=== PATIENT | male | born 1930 | race African-American/Black ===

== ENCOUNTER 2017-03-08 08:07 | Inpatient (IN) | payer OTHER ==
[~2017-03-08] VITALS: Ht 175.3 cm; Wt 95.3 kg
[2017-03-08] MEDS ORDERED: TRAM50TA2 PO (08:30)
[2017-03-08] MEDS ORDERED: GLIM2TAB2 PO (08:30)
[2017-03-08] MEDS ORDERED: METF500T4 PO (08:30)
[2017-03-08] MEDS ORDERED: ATOR40TA78 PO (08:30)
[2017-03-08] MEDS ORDERED: LEVE500T8 PO (08:30)
[2017-03-08] MEDS ORDERED: OMEP-110 PO (08:30)
[2017-03-08] MEDS ORDERED: LOSA25TA5 PO (08:30)
[2017-03-08] MEDS ORDERED: ONDANSETRON 2MG/ML, 2ML IVPush ONE (09:30)
[2017-03-08 09:49] LABS: HEMATOCRIT 29.1 % (39.2-51.8); HEMOGLOBIN 9.5 g/dL (13.7-18.0); WHITE BLOOD COUNT 8.3 x10^3/uL (3.4-10)
[2017-03-08 09:59] LABS: ASPARTATE AMINO TRANSFERASE 20 U/L (15-37); BLOOD UREA NITROGEN 13 mg/dL (7-18)
[2017-03-08] MEDS ORDERED: SODIUM CHLORIDE 0.9% 1,000ML IVBOLUS ONE (10:00)
[2017-03-08 10:05] LABS: IS PT STATUS REG ER OR PRE ER? YES
[2017-03-08] MEDS ORDERED: SODIUM CHLORIDE FLUSH 10ML SYR IVF ONE (10:30)
[2017-03-08] MEDS ORDERED: OMNIPAQUE 350 MG/ML, 100ML BOTTLE ONE (11:15)
[2017-03-08 13:50] VITALS: BP 135/75
[2017-03-08 14:40] VITALS: BP 135/75
[2017-03-08] MEDS ORDERED: ACETAMINOPHEN 325 MG TABLET ONE (16:28)
[2017-03-08] MEDS ORDERED: ACETAMINOPHEN 325 MG TABLET PO PRN ×2 (16:30→17:00)
[2017-03-08] MEDS: SODIUM CHLORIDE 0.9% 1,000 ML IV SCH (16:39)
[2017-03-08] MEDS ORDERED: hydrALAzine 20 MG/ML, 1ML IVPush PRN (17:00)
[2017-03-08] MEDS ORDERED: ENALAPRILAT 1.25 MG/ML, 2ML IVPush PRN (17:00)
[2017-03-08] MEDS ORDERED: ONDANSETRON 2MG/ML, 2ML IVPush PRN (17:00)
[2017-03-08] MEDS ORDERED: BISACODYL 10 MG SUPP PR PRN (17:00)
[2017-03-08] MEDS ORDERED: POLYETHYLENE GLYCOL 17 GM PACKET PO PRN (17:00)
[2017-03-08] MEDS: HEPARIN 5,000 UNITS/ML, 1ML SQ SCH (19:19)
[2017-03-08 20:00] VITALS: BP 127/69
[2017-03-08] MEDS: metFORMIN 500 MG TABLET PO SCH (20:48)
[2017-03-08] MEDS: ATORVASTATIN 40 MG TABLET PO SCH (22:27)
[2017-03-09] VITALS (11 sets, daily range): BP systolic 148–188; BP diastolic 53–92
[2017-03-09] MEDS: HEPARIN 5,000 UNITS/ML, 1ML SQ SCH ×3 (02:18→17:51)
[2017-03-09] MEDS: SODIUM CHLORIDE 0.9% 1,000 ML IV SCH (04:55)
[2017-03-09 06:05] LABS: HEMATOCRIT 29.4 % (39.2-51.8); HEMOGLOBIN 9.5 g/dL (13.7-18.0)
[2017-03-09 06:21] LABS: ASPARTATE AMINO TRANSFERASE 19 U/L (15-37); BLOOD UREA NITROGEN 10 mg/dL (7-18)
[2017-03-09] MEDS: SENNA/DOCUSATE TABLET PO SCH (09:00)
[2017-03-09] MEDS: metFORMIN 500 MG TABLET PO SCH ×2 (09:00→21:00)
[2017-03-09] MEDS ORDERED: LOSARTAN 25MG TABLET PO SCH (09:00)
[2017-03-09] MEDS: OMEPRAZOLE 20 MG CAPSULE.DR PO SCH (09:19)
[2017-03-09] MEDS: LEVETIRACETAM 500 MG TABLET PO SCH (09:20)
[2017-03-09] MEDS: GLIMEPIRIDE 1 MG TABLET PO SCH (09:23)
[2017-03-09] MEDS: FERROUS GLUCONATE 324 MG TABLET PO SCH (13:33)
[2017-03-09] MEDS: ASPIRIN 81 MG TABLET EC PO SCH (13:34)
[2017-03-09] MEDS: ATORVASTATIN 40 MG TABLET PO SCH (22:58)
[2017-03-10 02:00] VITALS: BP 185/85
[2017-03-10 02:15] VITALS: BP 168/72
[2017-03-10] MEDS: HEPARIN 5,000 UNITS/ML, 1ML SQ SCH ×2 (02:21→08:40)
[2017-03-10] MEDS: ASPIRIN 81 MG TABLET EC PO SCH (05:34)
[2017-03-10] MEDS: metFORMIN 500 MG TABLET PO SCH (07:45)
[2017-03-10 08:34] VITALS: BP 154/82
[2017-03-10] MEDS: FERROUS GLUCONATE 324 MG TABLET PO SCH (08:38)
[2017-03-10] MEDS: GLIMEPIRIDE 1 MG TABLET PO SCH (08:39)
[2017-03-10] MEDS: OMEPRAZOLE 20 MG CAPSULE.DR PO SCH (08:39)
[2017-03-10] MEDS: LEVETIRACETAM 500 MG TABLET PO SCH (08:39)
[2017-03-10] MEDS: SENNA/DOCUSATE TABLET PO SCH (08:40)
[2017-03-10] MEDS ORDERED: LOSARTAN 25MG TABLET PO SCH (09:00)
[2017-03-10] MEDS ORDERED: FERR325T16 PO (12:22)
[2017-03-10] MEDS ORDERED: HYDR12.53 PO (12:22)
[2017-03-10] MEDS ORDERED: LOSA25TA2 PO (12:22)
[2017-03-10] MEDS ORDERED: POLY10DR3 RIGHTEYE (12:22)
[2017-03-10] MEDS ORDERED: ASPI-621 PO (12:22)
[2017-03-10] MEDS ORDERED: CARV6.2512 PO (12:22)
[2017-03-10] MEDS ORDERED: POLYTRIM OPHTH 10ML RIGHTEYE SCH (12:30)
[2017-03-10] MEDS ORDERED: HYDROCHLOROTHIAZIDE 12.5 MG CAPSULE PO SCH (12:30)
[2017-03-10] MEDS ORDERED: CARVEDILOL 6.25 MG TABLET PO SCH (12:30)
[2017-03-10 14:23] VITALS: BP 132/79
== END 2017-03-10 14:58 | disposition home or self-care (01) | DRG 683 ==
LOC: ED 10:32 → EDIP 11:48 → 4WST 13:04 → DCLOUNGE 03-10 14:47
PROVIDERS: ADMIT Internal Medicine; ATTEND Internal Medicine
DX: N17.0 Acute kidney failure with tubular necrosis (principal); J98.11 Atelectasis; E11.40 Type 2 diabetes mellitus with diabetic neuropathy, unspecified; D64.9 Anemia, unspecified; E61.1 Iron deficiency; E78.5 Hyperlipidemia, unspecified; G40.909 Epilepsy, unspecified, not intractable, without status epilepticus; I11.9 Hypertensive heart disease without heart failure; I49.3 Ventricular premature depolarization; I51.7 Cardiomegaly; K21.9 Gastro-esophageal reflux disease without esophagitis; M47.814 Spondylosis without myelopathy or radiculopathy, thoracic region; N28.1 Cyst of kidney, acquired; R55 Syncope and collapse; Z90.79 Acquired absence of other genital organ(s); Z85.46 Personal history of malignant neoplasm of prostate
CPT/HCPCS: 36415; 70450; 70551; 71010; 71275; 80053; 80061; 81003; 82306; 82607; 82728; 82962; 83036; 83540; 83550; 83605; 83735; 84439; 84443; 84466; 84484; 85025; 85379; 87040; 93005; 93306; 93880; 96360; J1644; Q9967; J7030

== ENCOUNTER 2017-03-12 12:47 | Inpatient (IN) | payer OTHER ==
[~2017-03-12] VITALS: Ht 175.3 cm; Wt 94.6 kg
[~2017-03-12 12:47] MED LIST: ASPI-621 PO; ATOR40TA78 PO; CARV6.2512 PO; FERR325T16 PO; GLIM2TAB2 PO; HYDR12.53 PO; LEVE500T8 PO; LOSA25TA2 PO; LOSA25TA5 PO; METF500T4 PO; OMEP-110 PO; POLY10DR3 RIGHTEYE; TRAM50TA2 PO
[2017-03-12] MEDS ORDERED: CEFTRIAXONE PMX 1GM/50ML 50 ML ONE (13:57)
[2017-03-12] MEDS ORDERED: CEFTRIAXONE PMX 1GM/50ML 50 ML IVPB ONE (14:00)
[2017-03-12] MEDS ORDERED: SODIUM CHLORIDE FLUSH 10ML SYR IVF ONE (14:00)
[2017-03-12 14:42] LABS: BLOOD UREA NITROGEN 17 mg/dL (7-18)
[2017-03-12 14:45] LABS: HEMOGLOBIN 9.9 g/dL (13.7-18.0); WHITE BLOOD COUNT 6.7 x10^3/uL (3.4-10)
[2017-03-12] MEDS ORDERED: LABETALOL 5MG/ML, 20ML IVPush PRN (17:30)
[2017-03-12] MEDS ORDERED: GUAIFENESIN/DM 200-20MG, 10ML UDC PO PRN (17:30)
[2017-03-12] MEDS ORDERED: ONDANSETRON 2MG/ML, 2ML IVPush PRN (17:30)
[2017-03-12] MEDS ORDERED: ONDANSETRON ODT 4 MG PO PRN (17:30)
[2017-03-12] MEDS ORDERED: HYDROcodone/APAP 5/325 TABLET PO PRN (17:30)
[2017-03-12] MEDS ORDERED: VANCOMYCIN PER PHARMACY MC PRN (18:00)
[2017-03-12] MEDS ORDERED: PHARMACY MAY ADJ FOR RENAL FX MC PRN (18:00)
[2017-03-12] MEDS: HEPARIN 5,000 UNITS/ML, 1ML SQ SCH (18:37)
[2017-03-12] MEDS: SODIUM CHLORIDE 0.9% 1,000 ML IV SCH (18:37)
[2017-03-12] MEDS: CARVEDILOL 6.25 MG TABLET PO SCH (18:38)
[2017-03-12] MEDS: AMPICILLIN/SULBACTAM 3 GM in SODIUM CHLORIDE 0.9% 100 ML IV SCH (19:28)
[2017-03-12] MEDS: VALACYCLOVIR 500MG TABLET PO SCH (19:29)
[2017-03-12] MEDS ORDERED: PHARMACOKINETIC MONITORING MC PRN (19:30)
[2017-03-12] MEDS ORDERED: VANCOMYCIN 1,400 MG in SODIUM CHLORIDE 0.9% 250 ML IV SCH (19:30)
[2017-03-12] MEDS ORDERED: PHARMACOKINETIC CONSULTATION MC ONE (19:30)
[2017-03-12] MEDS: INSULIN ASPART 100 UNITS/ML, PEN SQ-INSULIN SCH (21:00)
[2017-03-12] MEDS: LEVETIRACETAM 500 MG TABLET PO SCH (21:15)
[2017-03-12] MEDS: ATORVASTATIN 40 MG TABLET PO SCH (21:15)
[2017-03-13 00:37] VITALS: BP 157/76
[2017-03-13] MEDS: HEPARIN 5,000 UNITS/ML, 1ML SQ SCH ×3 (01:53→17:48)
[2017-03-13] MEDS: AMPICILLIN/SULBACTAM 3 GM in SODIUM CHLORIDE 0.9% 100 ML IV SCH ×4 (01:53→20:17)
[2017-03-13 05:31] LABS: HEMATOCRIT 28.8 % (39.2-51.8); HEMOGLOBIN 9.4 g/dL (13.7-18.0); WHITE BLOOD COUNT 6.4 x10^3/uL (3.4-10)
[2017-03-13] MEDS: VALACYCLOVIR 500MG TABLET PO SCH (05:36)
[2017-03-13 05:40] LABS: BLOOD UREA NITROGEN 18 mg/dL (7-18)
[2017-03-13] MEDS: ASPIRIN 81 MG TABLET EC PO SCH (05:40)
[2017-03-13] MEDS: CARVEDILOL 6.25 MG TABLET PO SCH ×2 (05:40→17:48)
[2017-03-13 05:43] LABS: ASPARTATE AMINO TRANSFERASE 25 U/L (15-37)
[2017-03-13 06:42] VITALS: BP 152/81
[2017-03-13] MEDS: SODIUM CHLORIDE 0.9% 1,000 ML IV SCH ×3 (07:00→20:22)
[2017-03-13] MEDS: INSULIN ASPART 100 UNITS/ML, PEN SQ-INSULIN SCH ×4 (07:00→21:00)
[2017-03-13] MEDS ORDERED: LEVETIRACETAM 500 MG TABLET PO SCH (09:00)
[2017-03-13] MEDS: OMEPRAZOLE 20 MG CAPSULE.DR PO SCH (09:17)
[2017-03-13] MEDS: HYDROCHLOROTHIAZIDE 12.5 MG CAPSULE PO SCH (09:17)
[2017-03-13] MEDS: LEVETIRACETAM 500 MG TABLET PO SCH ×2 (09:17→20:17)
[2017-03-13] MEDS: FAMCICLOVIR 500 MG TABLET PO SCH ×2 (10:30→18:30)
[2017-03-13] MEDS: ERYTHROMYCIN OPHTH 0.5%, 1GM RIGHTEYE SCH ×2 (13:05→20:18)
[2017-03-13 13:21] VITALS: BP 149/81
[2017-03-13] MEDS ORDERED: TRIFLURIDINE 1% RIGHTEYE SCH (14:30)
[2017-03-13] MEDS: ARTIFICIAL TEARS OPHTH SOLN 15ML EACHEYE PRN (18:45)
[2017-03-13 19:08] VITALS: BP 164/78
[2017-03-13] MEDS: ATORVASTATIN 40 MG TABLET PO SCH (20:17)
[2017-03-14] MEDS: AMPICILLIN/SULBACTAM 3 GM in SODIUM CHLORIDE 0.9% 100 ML IV SCH ×4 (02:22→20:15)
[2017-03-14] MEDS: FAMCICLOVIR 500 MG TABLET PO SCH ×3 (02:30→18:07)
[2017-03-14 03:03] VITALS: BP 152/78
[2017-03-14] MEDS: HEPARIN 5,000 UNITS/ML, 1ML SQ SCH ×3 (03:09→20:15)
[2017-03-14 05:56] LABS: BLOOD UREA NITROGEN 14 mg/dL (7-18)
[2017-03-14 06:00] LABS: HEMATOCRIT 26.7 % (39.2-51.8); HEMOGLOBIN 8.7 g/dL (13.7-18.0); WHITE BLOOD COUNT 6.1 x10^3/uL (3.4-10)
[2017-03-14] MEDS: CARVEDILOL 6.25 MG TABLET PO SCH ×2 (06:10→18:07)
[2017-03-14] MEDS: ASPIRIN 81 MG TABLET EC PO SCH (06:10)
[2017-03-14] MEDS: INSULIN ASPART 100 UNITS/ML, PEN SQ-INSULIN SCH ×4 (07:00→21:00)
[2017-03-14 08:22] VITALS: BP 115/66
[2017-03-14] MEDS: LEVETIRACETAM 500 MG TABLET PO SCH ×2 (08:45→20:15)
[2017-03-14] MEDS: HYDROCHLOROTHIAZIDE 12.5 MG CAPSULE PO SCH (08:45)
[2017-03-14] MEDS: OMEPRAZOLE 20 MG CAPSULE.DR PO SCH (08:45)
[2017-03-14] MEDS: ERYTHROMYCIN OPHTH 0.5%, 1GM RIGHTEYE SCH ×2 (08:45→22:41)
[2017-03-14] MEDS: SODIUM CHLORIDE 0.9% 1,000 ML IV SCH ×2 (10:32→23:40)
[2017-03-14] MEDS ORDERED: VANCOMYCIN 1,600 MG in SODIUM CHLORIDE 0.9% 250 ML IV SCH (11:00)
[2017-03-14 13:46] VITALS: BP 129/76
[2017-03-14] MEDS ORDERED: POLYETHYLENE GLYCOL 17 GM PACKET PO PRN (14:30)
[2017-03-14 18:48] VITALS: BP 146/74
[2017-03-14] MEDS: ATORVASTATIN 40 MG TABLET PO SCH (20:16)
[2017-03-15] MEDS: AMPICILLIN/SULBACTAM 3 GM in SODIUM CHLORIDE 0.9% 100 ML IV SCH ×4 (01:39→20:44)
[2017-03-15] MEDS: FAMCICLOVIR 500 MG TABLET PO SCH ×3 (02:30→20:39)
[2017-03-15 02:37] VITALS: BP 165/74
[2017-03-15] MEDS: HEPARIN 5,000 UNITS/ML, 1ML SQ SCH ×3 (03:03→20:39)
[2017-03-15] MEDS: ASPIRIN 81 MG TABLET EC PO SCH (05:06)
[2017-03-15] MEDS: CARVEDILOL 6.25 MG TABLET PO SCH ×2 (05:07→18:45)
[2017-03-15 05:53] LABS: HEMATOCRIT 25.8 % (39.2-51.8); HEMOGLOBIN 8.5 g/dL (13.7-18.0); WHITE BLOOD COUNT 5.9 x10^3/uL (3.4-10)
[2017-03-15 06:14] LABS: ASPARTATE AMINO TRANSFERASE 21 U/L (15-37); BLOOD UREA NITROGEN 12 mg/dL (7-18)
[2017-03-15] MEDS: INSULIN ASPART 100 UNITS/ML, PEN SQ-INSULIN SCH ×4 (07:00→20:59)
[2017-03-15] MEDS: LEVETIRACETAM 500 MG TABLET PO SCH ×2 (08:33→20:39)
[2017-03-15] MEDS: HYDROCHLOROTHIAZIDE 12.5 MG CAPSULE PO SCH (08:33)
[2017-03-15] MEDS: ERYTHROMYCIN OPHTH 0.5%, 1GM RIGHTEYE SCH ×2 (08:34→20:39)
[2017-03-15] MEDS: OMEPRAZOLE 20 MG CAPSULE.DR PO SCH (08:34)
[2017-03-15 08:50] VITALS: BP 127/75
[2017-03-15] MEDS: SODIUM CHLORIDE 0.9% 1,000 ML IV SCH (11:39)
[2017-03-15] MEDS: ARTIFICIAL TEARS OPHTH SOLN 15ML EACHEYE PRN (11:40)
[2017-03-15 14:35] VITALS: BP 129/75
[2017-03-15 19:36] VITALS: BP 132/70
[2017-03-15] MEDS: ATORVASTATIN 40 MG TABLET PO SCH (20:39)
[2017-03-16] MEDS: AMPICILLIN/SULBACTAM 3 GM in SODIUM CHLORIDE 0.9% 100 ML IV SCH ×3 (01:41→14:13)
[2017-03-16 01:44] VITALS: BP 126/64
[2017-03-16] MEDS: HEPARIN 5,000 UNITS/ML, 1ML SQ SCH ×2 (04:12→11:52)
[2017-03-16] MEDS: SODIUM CHLORIDE 0.9% 1,000 ML IV SCH ×2 (04:12→14:00)
[2017-03-16] MEDS: FAMCICLOVIR 500 MG TABLET PO SCH ×2 (04:12→11:52)
[2017-03-16] MEDS: CARVEDILOL 6.25 MG TABLET PO SCH (06:05)
[2017-03-16] MEDS: ASPIRIN 81 MG TABLET EC PO SCH (06:05)
[2017-03-16] MEDS: INSULIN ASPART 100 UNITS/ML, PEN SQ-INSULIN SCH ×2 (07:00→11:00)
[2017-03-16 07:59] VITALS: BP 121/71
[2017-03-16 08:38] LABS: HEMATOCRIT 25.6 % (39.2-51.8); HEMOGLOBIN 8.4 g/dL (13.7-18.0); WHITE BLOOD COUNT 5.4 x10^3/uL (3.4-10)
[2017-03-16 08:48] LABS: BLOOD UREA NITROGEN 11 mg/dL (7-18)
[2017-03-16] MEDS: LEVETIRACETAM 500 MG TABLET PO SCH (10:20)
[2017-03-16] MEDS: OMEPRAZOLE 20 MG CAPSULE.DR PO SCH (10:20)
[2017-03-16] MEDS: HYDROCHLOROTHIAZIDE 12.5 MG CAPSULE PO SCH (10:20)
[2017-03-16] MEDS: ERYTHROMYCIN OPHTH 0.5%, 1GM RIGHTEYE SCH (10:21)
[2017-03-16 13:04] VITALS: BP 123/66
[2017-03-16] MEDS ORDERED: AMOX1TAB64 PO (16:19)
[2017-03-16] MEDS ORDERED: LEVE500T53 PO (16:19)
[2017-03-16] MEDS ORDERED: FAMC500T33 PO (16:19)
[2017-03-16] MEDS ORDERED: DOXY100T PO (16:19)
[2017-03-16] MEDS ORDERED: ERYT1OIN5 RIGHTEYE (16:20)
== END 2017-03-16 17:28 | disposition home or self-care (01) | DRG 602 ==
LOC: ED 15:00 → EDIP 17:23 → 3NE 18:15
PROVIDERS: ADMIT Hospitalist; ATTEND Hospitalist
DX: L03.211 Cellulitis of face (principal); N17.0 Acute kidney failure with tubular necrosis; B02.31 Zoster conjunctivitis; E11.40 Type 2 diabetes mellitus with diabetic neuropathy, unspecified; D64.9 Anemia, unspecified; G40.909 Epilepsy, unspecified, not intractable, without status epilepticus; E78.5 Hyperlipidemia, unspecified; Z96.651 Presence of right artificial knee joint; H00.032 Abscess of right lower eyelid; H04.301 Unspecified dacryocystitis of right lacrimal passage; H00.031 Abscess of right upper eyelid; I10 Essential (primary) hypertension; K21.9 Gastro-esophageal reflux disease without esophagitis; K22.2 Esophageal obstruction; Z79.899 Other long term (current) drug therapy; Z85.46 Personal history of malignant neoplasm of prostate; Z87.891 Personal history of nicotine dependence; Z90.79 Acquired absence of other genital organ(s)
CPT/HCPCS: 36415; 70480; 80048; 80053; 82040; 82962; 83735; 85025; 85610; 85730; 96365; 96366; J0295; J0696; J1644; J3370; J7030; J7050

== ENCOUNTER 2017-04-02 09:45 | Inpatient (IN) | payer OTHER ==
[~2017-04-02] VITALS: Ht 175.3 cm; Wt 93.5 kg
[~2017-04-02 09:45] MED LIST changes: +AMOX1TAB64 PO; +DOXY100T PO; +ERYT1OIN5 RIGHTEYE; +FAMC500T33 PO; +LEVE500T53 PO
[2017-04-02 11:32] LABS: BASOPHILS # (AUTO) 0.03 x10^3/uL (0-0.1); BASOPHILS % (AUTO) 0 % (0-1); EOSINOPHILS # (AUTO) 0.06 x10^3/uL (0-0.4); EOSINOPHILS % (AUTO) 1 % (1-7); LYMPHOCYTES # (AUTO) 1.16 x10^3/uL (1-3.4); LYMPHOCYTES % (AUTO) 13 % (22-44); MD NO; MEAN CORPUSCULAR HEMOGLOBIN 28.1 pg (27.5-34.5); MEAN CORPUSCULAR VOLUME 87.7 fL (81-97); MEAN PLATELET VOLUME 8.6 fL (7.4-10.4); MONOCYTES % (AUTO) 6 % (2-9); NEUTROPHILS # (AUTO) 6.95 x10^3/uL (1.8-6.8); NEUTROPHILS % (AUTO) 80 % (42-75); PLATELET COUNT 200 x10^3/uL (130-400); RED BLOOD COUNT 3.44 x10^6/uL (4.38-5.82); RED CELL DISTRIBUTION WIDTH 16.4 % (9.4-14.8)
[2017-04-02 11:40] LABS: ALBUMIN 3.5 g/dL (3.4-5.0); ANION GAP 11 mmol/L (5-15); CALCIUM 8.9 mg/dL (8.5-10.1); CHLORIDE 107 mmol/L (98-107)
[2017-04-02 11:43] LABS: CREATININE 1.57 mg/dL (0.7-1.3)
[2017-04-02] MEDS ORDERED: SODIUM CHLORIDE FLUSH 10ML SYR IVF PRN (12:30)
[2017-04-02] MEDS ORDERED: SODIUM CHLORIDE 0.9% 1,000 ML IV ONE (13:30)
[2017-04-02] MEDS ORDERED: ACETAMINOPHEN 325 MG TABLET PO PRN (13:30)
[2017-04-02] MEDS ORDERED: DOCUSATE 100 MG CAPSULE PO PRN (13:30)
[2017-04-02] MEDS ORDERED: ENALAPRILAT 1.25 MG/ML, 2ML IVPush PRN (13:30)
[2017-04-02] MEDS ORDERED: ONDANSETRON ODT 4 MG PO PRN (13:30)
[2017-04-02 13:47] LABS: HEMOGLOBIN A1C 6.4 % (4.2-6.3)
[2017-04-02 14:14] VITALS: BP 145/72
[2017-04-02] MEDS ORDERED: hydrALAzine 20 MG/ML, 1ML IV PRN (14:30)
[2017-04-02] MEDS ORDERED: LABETALOL 5MG/ML, 20ML IVPush PRN (14:30)
[2017-04-02] MEDS: INSULIN ASPART 100 UNITS/ML, PEN SQ-INSULIN SCH ×2 (16:00→20:57)
[2017-04-02] MEDS: CARVEDILOL 6.25 MG TABLET PO SCH (16:59)
[2017-04-02] MEDS: POLYTRIM OPHTH 10ML RIGHTEYE SCH ×2 (17:00→20:58)
[2017-04-02 19:32] VITALS: BP 121/67
[2017-04-02] MEDS: LEVETIRACETAM 500 MG TABLET PO SCH (20:58)
[2017-04-02] MEDS ORDERED: ATORVASTATIN 40 MG TABLET PO SCH (21:00)
[2017-04-03 01:06] VITALS: BP 149/75
[2017-04-03 04:44] LABS: ANION GAP 10 mmol/L (5-15); CALCIUM 8.5 mg/dL (8.5-10.1); CHLORIDE 107 mmol/L (98-107); CHOLESTEROL, TOTAL 117 mg/dL (140-239); CREATININE 1.37 mg/dL (0.7-1.3); TRIGLYCERIDES 98 mg/dL (50-200); VLDL CHOLESTEROL 20 mg/dL (0-25)
[2017-04-03 04:54] LABS: CHOL/HDL RATIO 3.3; HDL CHOL % 30 % (26-37); HDL CHOLESTEROL (DIRECT) 35 mg/dL (40-60); LDL CHOLESTEROL,CALCULATED 62 mg/dL (54-169); LDL/HDL RATIO 1.8 (0.5-3.0); THYROID STIMULATING HORMONE 0.945 mIU/L (0.358-3.740)
[2017-04-03] MEDS: CARVEDILOL 6.25 MG TABLET PO SCH (06:16)
[2017-04-03 06:45] LABS: BASOPHILS % (AUTO) 0 % (0-1); EOSINOPHILS # (AUTO) 0.06 x10^3/uL (0-0.4); EOSINOPHILS % (AUTO) 1 % (1-7); LYMPHOCYTES # (AUTO) 1.67 x10^3/uL (1-3.4); LYMPHOCYTES % (AUTO) 25 % (22-44); MD NO; MEAN CORPUSCULAR HEMOGLOBIN 28.8 pg (27.5-34.5); MEAN CORPUSCULAR VOLUME 87.3 fL (81-97); MEAN PLATELET VOLUME 8.7 fL (7.4-10.4); MONOCYTES # (AUTO) 0.54 x10^3/uL (0.2-0.8); MONOCYTES % (AUTO) 8 % (2-9); NEUTROPHILS # (AUTO) 4.31 x10^3/uL (1.8-6.8); NEUTROPHILS % (AUTO) 65 % (42-75); PLATELET COUNT 161 x10^3/uL (130-400); RED CELL DISTRIBUTION WIDTH 16.8 % (9.4-14.8)
[2017-04-03] MEDS: INSULIN ASPART 100 UNITS/ML, PEN SQ-INSULIN SCH ×2 (07:00→11:00)
[2017-04-03] MEDS ORDERED: FERROUS GLUCONATE 324 MG TABLET PO SCH (08:00)
[2017-04-03 08:04] VITALS: BP 123/78
[2017-04-03] MEDS: POLYTRIM OPHTH 10ML RIGHTEYE SCH (08:35)
[2017-04-03] MEDS: LEVETIRACETAM 500 MG TABLET PO SCH (08:35)
[2017-04-03] MEDS ORDERED: OMEPRAZOLE 20 MG CAPSULE.DR PO SCH (09:00)
[2017-04-03] MEDS ORDERED: LOSARTAN 25MG TABLET PO SCH (09:00)
[2017-04-03] MEDS ORDERED: SENNA/DOCUSATE TABLET PO SCH (09:00)
[2017-04-03 11:21] LABS: % IRON SATURATION 14 % (20-55); IRON LEVEL 54 mcg/dL (65-175); TOTAL IRON BINDING CAPACITY 380 mcg/dL (250-450)
[2017-04-03 12:16] VITALS: BP 127/68
[2017-04-03] MEDS ORDERED: IRON SUCROSE COMPLEX 100MG/5ML IV SCH (12:30)
[2017-04-03] MEDS ORDERED: LEVE750T37 PO (12:39)
== END 2017-04-03 16:17 | disposition home or self-care (01) | DRG 100 ==
LOC: ED 10:22 → EDIP 12:22 → 4WST 13:43
PROVIDERS: ADMIT Hospitalist; ATTEND Hospitalist
DX: G40.209 Localization-related (focal) (partial) symptomatic epilepsy and epileptic syndromes with complex partial seizures, not intractable, without status epilepticus (principal); N17.0 Acute kidney failure with tubular necrosis; E11.40 Type 2 diabetes mellitus with diabetic neuropathy, unspecified; D64.9 Anemia, unspecified; K22.2 Esophageal obstruction; E78.5 Hyperlipidemia, unspecified; I10 Essential (primary) hypertension; K21.9 Gastro-esophageal reflux disease without esophagitis; E66.9 Obesity, unspecified; R55 Syncope and collapse; R53.81 Other malaise; M54.9 Dorsalgia, unspecified; Z85.46 Personal history of malignant neoplasm of prostate; Z90.79 Acquired absence of other genital organ(s); Z87.891 Personal history of nicotine dependence; Z68.30 Body mass index [BMI] 30.0-30.9, adult
CPT/HCPCS: 36415; 70450; 80048; 80061; 82040; 82962; 83036; 83540; 83550; 83735; 84100; 84443; 85025; 93005; 95819; 99285; J1756; J7030

== ENCOUNTER 2017-04-05 12:52 | Inpatient (IN) | payer MEDICARE, OTHER ==
[~2017-04-05] VITALS: Ht 177.8 cm; Wt 53.9 kg
[~2017-04-05 12:52] MED LIST changes: +LEVE750T37 PO
[2017-04-05] MEDS ORDERED: SODIUM CHLORIDE 0.9% 1,000 ML IV ONE (13:17)
[2017-04-05] MEDS ORDERED: SODIUM CHLORIDE FLUSH 10ML SYR IVF ONE (13:30)
[2017-04-05 13:54] LABS: BASOPHILS # (AUTO) 0.02 x10^3/uL (0-0.1); BASOPHILS % (AUTO) 0 % (0-1); EOSINOPHILS # (AUTO) 0.08 x10^3/uL (0-0.4); EOSINOPHILS % (AUTO) 1 % (1-7); LYMPHOCYTES # (AUTO) 1.42 x10^3/uL (1-3.4); LYMPHOCYTES % (AUTO) 19 % (22-44); MD NO; MEAN CORPUSCULAR HEMOGLOBIN 28.4 pg (27.5-34.5); MEAN CORPUSCULAR HGB CONC 32.4 g/dL (33.2-36.2); MEAN CORPUSCULAR VOLUME 87.6 fL (81-97); MEAN PLATELET VOLUME 8.7 fL (7.4-10.4); MONOCYTES # (AUTO) 0.51 x10^3/uL (0.2-0.8); MONOCYTES % (AUTO) 7 % (2-9); NEUTROPHILS # (AUTO) 5.67 x10^3/uL (1.8-6.8); NEUTROPHILS % (AUTO) 74 % (42-75); PLATELET COUNT 193 x10^3/uL (130-400); RED BLOOD COUNT 3.33 x10^6/uL (4.38-5.82); RED CELL DISTRIBUTION WIDTH 17.3 % (9.4-14.8)
[2017-04-05 14:07] LABS: ALANINE AMINOTRANSFERASE 15 U/L (12-78); ALBUMIN 3.4 g/dL (3.4-5.0); ANION GAP 10 mmol/L (5-15); CHLORIDE 107 mmol/L (98-107); CREATININE 1.93 mg/dL (0.7-1.3)
[2017-04-05 14:09] LABS: ALKALINE PHOSPHATASE 82 U/L (45-117); BILIRUBIN,TOTAL 0.5 mg/dL (0.2-1.0); TOTAL PROTEIN 7.8 g/dL (6.4-8.2)
[2017-04-05] MEDS ORDERED: SODIUM CHLORIDE FLUSH 10ML SYR IVF PRN (15:00)
[2017-04-05] MEDS: SODIUM CHLORIDE 0.9% 1,000 ML IV SCH (15:52)
[2017-04-05] MEDS ORDERED: POLYETHYLENE GLYCOL 17 GM PACKET PO PRN (16:00)
[2017-04-05] MEDS ORDERED: DEXTROSE 50%, 50ML SYRINGE IVPush PRN (16:00)
[2017-04-05] MEDS ORDERED: ONDANSETRON 2MG/ML, 2ML IVPush PRN (16:00)
[2017-04-05] MEDS ORDERED: GLUCAGON 1 MG IM PRN (16:00)
[2017-04-05] MEDS ORDERED: DOCUSATE 100 MG CAPSULE PO PRN (16:00)
[2017-04-05] MEDS ORDERED: morphine SULFATE 10 MG/ML, 1ML IVPush PRN (16:00)
[2017-04-05] MEDS ORDERED: ACETAMINOPHEN 325 MG TABLET PO PRN (16:00)
[2017-04-05] MEDS ORDERED: HYDROcodone/APAP 5/325 TABLET PO PRN (16:00)
[2017-04-05] MEDS ORDERED: BISACODYL 10 MG SUPP PR PRN (16:00)
[2017-04-05] MEDS ORDERED: hydrALAzine 20 MG/ML, 1ML IVPush PRN (16:00)
[2017-04-05] MEDS ORDERED: ENALAPRILAT 1.25 MG/ML, 2ML IVPush PRN (16:00)
[2017-04-05] MEDS ORDERED: DEXTROSE 4 GM TAB.CHEW PO PRN (16:00)
[2017-04-05] MEDS: INSULIN ASPART 100 UNITS/ML, PEN SQ-INSULIN SCH ×2 (16:00→20:31)
[2017-04-05 17:46] VITALS: BP 128/62
[2017-04-05] MEDS: CARVEDILOL 6.25 MG TABLET PO SCH (18:18)
[2017-04-05 18:52] VITALS: BP 105/53
[2017-04-05] MEDS: ATORVASTATIN 40 MG TABLET PO SCH (20:58)
[2017-04-05] MEDS: LEVETIRACETAM 100 MG/ML ORAL SOL PO SCH (20:58)
[2017-04-05 22:06] LABS: MICROSCOPIC AUTO
[2017-04-05 22:08] LABS: CULTURE INDICATED? YES
[2017-04-05 23:54] LABS: CLOSTRIDIUM DIFFICILE ANTIGEN NEGATIVE; CLOSTRIDIUM DIFFICILE TOXIN NEGATIVE (Negative)
[2017-04-06] VITALS (11 sets, daily range): BP systolic 127–157; BP diastolic 50–82
[2017-04-06] MEDS: SODIUM CHLORIDE 0.9% 1,000 ML IV SCH (01:57)
[2017-04-06] MEDS: CARVEDILOL 6.25 MG TABLET PO SCH ×2 (05:13→16:36)
[2017-04-06 05:49] LABS: BASOPHILS # (AUTO) 0.02 x10^3/uL (0-0.1); BASOPHILS % (AUTO) 0 % (0-1); EOSINOPHILS # (AUTO) 0.08 x10^3/uL (0-0.4); EOSINOPHILS % (AUTO) 1 % (1-7); LYMPHOCYTES # (AUTO) 1.73 x10^3/uL (1-3.4); LYMPHOCYTES % (AUTO) 23 % (22-44); MD NO; MEAN CORPUSCULAR HEMOGLOBIN 28.8 pg (27.5-34.5); MEAN CORPUSCULAR HGB CONC 33.1 g/dL (33.2-36.2); MEAN CORPUSCULAR VOLUME 87.1 fL (81-97); MEAN PLATELET VOLUME 9.4 fL (7.4-10.4); MONOCYTES # (AUTO) 0.57 x10^3/uL (0.2-0.8); MONOCYTES % (AUTO) 8 % (2-9); NEUTROPHILS # (AUTO) 5.25 x10^3/uL (1.8-6.8); NEUTROPHILS % (AUTO) 69 % (42-75); PLATELET COUNT 147 x10^3/uL (130-400); RED BLOOD COUNT 2.75 x10^6/uL (4.38-5.82); RED CELL DISTRIBUTION WIDTH 17.1 % (9.4-14.8)
[2017-04-06 05:49] LABS: INTERNATIONAL NORMALIZED RATIO 0.98 (0.93-1.1); PROTHROMBIN TIME 10.2 Seconds (9.6-11.5)
[2017-04-06 05:54] LABS: HCT (SEDRATE) 23.9 % (39.2-51.8)
[2017-04-06 05:54] LABS: ANION GAP 9 mmol/L (5-15); CALCIUM 8.2 mg/dL (8.5-10.1); CHLORIDE 111 mmol/L (98-107)
[2017-04-06] MEDS: INSULIN ASPART 100 UNITS/ML, PEN SQ-INSULIN SCH ×4 (07:00→21:19)
[2017-04-06 07:52] LABS: OCCULT BLOOD NEGATIVE (NEGATIVE)
[2017-04-06] MEDS: OMEPRAZOLE 20 MG CAPSULE.DR PO SCH (08:23)
[2017-04-06] MEDS: FERROUS GLUCONATE 324 MG TABLET PO SCH (08:24)
[2017-04-06] MEDS: GLIMEPIRIDE 1 MG TABLET PO SCH (08:24)
[2017-04-06] MEDS: LOSARTAN 50MG TABLET PO SCH (08:24)
[2017-04-06] MEDS: LEVETIRACETAM 100 MG/ML ORAL SOL PO SCH ×2 (08:24→21:02)
[2017-04-06] MEDS ORDERED: IRON DEXTRAN COMPLEX 1,250 MG in SODIUM CHLORIDE 0.9% 250 ML IV ONE (11:30)
[2017-04-06] MEDS ORDERED: IRON DEXTRAN COMPLEX 25 MG in SODIUM CHLORIDE 0.9% 50 ML IV ONE (11:30)
[2017-04-06] MEDS ORDERED: IRON DEXTRAN IV PER PHARMACY IV PRN (11:30)
[2017-04-06 11:43] LABS: GLUCOSE, CSF 56 mg/dL (40-80); TOTAL PROTEIN,CSF 53 mg/dL (15-45)
[2017-04-06] MEDS: POLYTRIM OPHTH 10ML RIGHTEYE SCH ×3 (12:36→21:02)
[2017-04-06] MEDS: ERYTHROMYCIN OPHTH 0.5%, 1GM RIGHTEYE SCH ×2 (12:36→21:02)
[2017-04-06 16:14] LABS: HEMOGRAM NOTE RECHECKED
[2017-04-06] MEDS: ATORVASTATIN 40 MG TABLET PO SCH (21:02)
[2017-04-07 02:41] VITALS: BP 169/70
[2017-04-07] MEDS: CARVEDILOL 6.25 MG TABLET PO SCH (05:30)
[2017-04-07 06:53] VITALS: BP 146/80
[2017-04-07] MEDS: INSULIN ASPART 100 UNITS/ML, PEN SQ-INSULIN SCH ×2 (07:00→11:00)
[2017-04-07] MEDS: GLIMEPIRIDE 1 MG TABLET PO SCH (07:36)
[2017-04-07] MEDS: LOSARTAN 50MG TABLET PO SCH (07:36)
[2017-04-07] MEDS: OMEPRAZOLE 20 MG CAPSULE.DR PO SCH (07:36)
[2017-04-07] MEDS: POLYTRIM OPHTH 10ML RIGHTEYE SCH (07:36)
[2017-04-07] MEDS: FERROUS GLUCONATE 324 MG TABLET PO SCH (07:36)
[2017-04-07] MEDS: ERYTHROMYCIN OPHTH 0.5%, 1GM RIGHTEYE SCH (07:37)
[2017-04-07] MEDS: LEVETIRACETAM 100 MG/ML ORAL SOL PO SCH (07:37)
== END 2017-04-07 14:37 | disposition home or self-care (01) | DRG 100 ==
LOC: ED 16:15 → EDIP 16:28 → 4WST 17:37 → 4EST 18:31 → DCLOUNGE 04-07 14:25
PROVIDERS: ADMIT Internal Medicine; ATTEND Internal Medicine
PROC: 009U3ZX Drainage of Spinal Canal, Percutaneous Approach, Diagnostic (ICD-10-PCS; 2017-04-05)
PROC: 30233N1 Transfusion of Nonautologous Red Blood Cells into Peripheral Vein, Percutaneous Approach (ICD-10-PCS; principal; 2017-04-06)
DX: G40.409 Other generalized epilepsy and epileptic syndromes, not intractable, without status epilepticus (principal); N17.0 Acute kidney failure with tubular necrosis; D50.9 Iron deficiency anemia, unspecified; E11.40 Type 2 diabetes mellitus with diabetic neuropathy, unspecified; K21.9 Gastro-esophageal reflux disease without esophagitis; E78.5 Hyperlipidemia, unspecified; H10.89 Other conjunctivitis; I10 Essential (primary) hypertension; I44.4 Left anterior fascicular block; J32.0 Chronic maxillary sinusitis; R32 Unspecified urinary incontinence; Z79.899 Other long term (current) drug therapy; Z85.46 Personal history of malignant neoplasm of prostate
CPT/HCPCS: 36415; 62270; 70450; 71045; 80048; 80053; 81001; 82272; 82728; 82945; 82962; 83540; 83550; 84157; 84466; 85014; 85018; 85025; 85610; 85651; 86850; 86900; 86923; 87040; 87070; 87086; 87116; 87205; 87206; 87252; 87324; 89051; 93005; 95819; 99285; J1750; J7030; J7050; P9016